=== PATIENT | male | born 1980 | race Two or more races ===

== ENCOUNTER 2024-10-15 17:38 | Emergency (ER) | payer OTHER ==
[~2024-10-15] VITALS: Ht 185.4 cm; Wt 88.5 kg
[2024-10-15 18:10] LABS: Hematocrit 43.1 % (41.0-53.0); Hemoglobin 14.6 g/dL (13.5-17.5); Mean Corpuscular Hemoglobin 28.1 pg (28.0-32.0); Mean Corpuscular Volume 82.7 fL (80.0-100.0); Nucleated Red Blood Cells % 0.1 %
[2024-10-15] MEDS ORDERED: HYDROcodone-ACET 10/325MG TAB PO ONE (18:30)
[2024-10-15 18:35] LABS: Alanine Aminotransferase 28 U/L (7-40); Albumin 4.4 g/dL (3.2-4.8); Alkaline Phosphatase 96 U/L (46-116); Anion Gap 11 (5-15); BUN/Creatinine Ratio 18.8 (10.0-20.0); Bilirubin, Total 0.3 mg/dL (0.2-1.0); Blood Urea Nitrogen 18 mg/dL (9-23); Calcium 10.2 mg/dL (8.7-10.4); Carbon Dioxide 25 mmol/L (20-31); Chloride 107 mmol/L (98-107); Potassium 4.0 mmol/L (3.5-5.1); Sodium 143 mmol/L (136-145); Total Protein 7.3 g/dL (5.7-8.2)
[2024-10-15 18:37] LABS: Glucose 116 mg/dL (74-106)
--- NOTE | 2024-10-15 18:39 | DVH ---
EXAM: XY CHEST XRAY 1 VIEW HISTORY: chest pain TECHNIQUE: 1 view of the chest COMPARISON: None FINDINGS/IMPRESSION: LUNGS: No pleural effusion, consolidation, or pneumothorax MEDIASTINUM: Unremarkable BONES: No acute osseous abnormality OTHER: None
--- NOTE | 2024-10-15 18:42 | ED.PDOC ---
History of Present Illness HPI Comments 44 y/o M presents with son for c/c chest and right flank pain, hot flashes, and excessive sweating. Patient endorses on sudden, unprovoked, and atraumatic onset of symptoms, earlier, today. He comments on pain being pressure-like in quality and improving whenever resting and laying down and worsening whenever standing up and moving around. Patient further reports on vomiting 1x after taking a Motrin prior to arrival. Denial of any urinary symptoms, shortness of breath, abdominal pain, chills, or further associated symptoms. Chief Complaint: Chest Pain Time Seen by MD: 18:15 Reviewed Notes: Nurses Notes, Medications Allergies: Coded Allergies: Acetaminophen (Verified Allergy, Mild, 10/15/24) Home Meds Active Scripts Naproxen (NAPROSYN TABLET) 500 Mg Tb, 1 TAB PO BID PRN, #60 TAB 1 Refill Prov:EMILI JOSHUA MD 10/15/24 Gabapentin (Once-Daily) (Gabapentin) 300 Mg Tab, 300 MG PO Q6HP PRN, #30 TAB Prov:EMILI JOSHUA MD 10/15/24 Tamsulosin Hcl (Flomax) 0.4 Mg Cap, 1 CAP PO DAILY for 30 Days, #30 CAP 11 Refills Prov:EMILI JOSHUA MD 10/15/24 Information Source: Patient Mode of Arrival: Ambulatory Past Medical History PAST MEDICAL HISTORY: Denies Surgical History: Denies all surgeries All Other Systems: Reviewed and Negative (Comprehensive systems review obtained and negative except for what is stated in the HPI.) Physical Exam General Appearance: Mild Distress, Normal HEENT: Normal ENT Inspection, Pharynx Normal, TMs Normal Neck: Full Range of Motion, Non-Tender, Normal, Normal Inspection Respiratory: Chest Non-Tender, Lungs Clear, No Accessory Muscle Use, No Respiratory Distress, Normal Breath Sounds Cardiovascular: No Edema, No JVD, No Murmur, No Gallop, Normal Peripheral Pulses, Regular Rate/Rhythm Breast Exam: Deferred Gastrointestinal: No Organomegaly, Non Tender, No Pulsatile Mass, Normal Bowel Sounds, Soft Genitalia: Deferred Pelvic: Deferred Rectal: Deferred Extremities: No calf tenderness, Normal capillary refill, Normal inspection, Normal range of motion, Non-tender, No pedal edema Musculoskeletal : Apperance: Normal 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 Was a procedure done?: No EKG EKG : Pulse Rate (adult): 86 [place]: Normal Cardiac Rhythm: NSR Block: None Hypertrophy: None ST: Normal Differential Dx Considerations may include: HI, PE, ACS, URI, angina, anxiety, gastritis, nephrolithiasis, cystitis, pyelonephritis, among others X-Ray, Labs, Meds, VS Vital Signs Date Time Temp Pulse Resp B/P (MAP) Pulse Ox O2 Delivery O2 Flow Rate FiO2 10/15/24 20:05 98.0 86 16 150/80 (103) 96 98.0 10/15/24 18:42 86 10/15/24 17:41 86 10/15/24 17:39 98.0 89 16 158/107 96 98.0 Lab Test 10/15/24 18:57 10/15/24 18:21 10/15/24 17:50 Range/Units Troponin I High Sensitivity 26 24 </=54 ng/L Urine Color Yellow Yellow Urine Clarity Turbid H Clear Urine pH 5.5 5.0-9.0 Urine Specific [place] 1.027 1.001-1.035 Urine Protein 1+ H Negative Urine Ketones Negative Negative Urine Blood 3+ H Negative /uL Urine Nitrite Negative Negative Urine Bilirubin Negative Negative Urine Urobilinogen Normal Negative mg/dL Urine Leukocyte Esterase Negative Negative /uL Urine RBC 254 0 - 3 /hpf Urine Microscopic WBC 6 H 0-3 /HPF Urine Squamous Epithelial Cells None seen <5 /hpf Urine Calcium Oxalate Crystals Many None Seen Urine Bacteria None seen None Seen /hpf Urine Mucus Few None Seen Urine Glucose Normal Normal mg/dL White Blood Count 9.9 4.4-10.8 10^3/uL Red Blood Count 5.21 4.5-5.90 10^6/uL Hemoglobin 14.6 13.5-17.5 g/dL Hematocrit 43.1 41.0-53.0 % Mean Corpuscular Volume 82.7 80.0-100.0 fL Mean Corpuscular Hemoglobin 28.1 28.0-32.0 pg Mean Corpuscular Hemoglobin Concent 33.9 32.0-36.0 g/dL Red Cell Distribution Width 13.3 11.8-14.3 % Platelet Count 337 140-450 10^3/uL Mean Platelet Volume 8.6 6.9-10.8 fL Neutrophils (%) (Auto) 65.9 37.0-80.0 % Lymphocytes (%) (Auto) 23.1 10.0-50.0 % Monocytes (%) (Auto) 7.9 0.0-12.0 % Eosinophils (%) (Auto) 2.6 0.0-7.0 % Basophils (%) (Auto) 0.5 0.0-2.0 % Neutrophils # (Auto) 6.5 1.6-8.6 10 ^3/uL Lymphocytes # (Auto) 2.3 0.4-5.4 10 ^3/uL Monocytes # (Auto) 0.8 0-1.3 10 ^3/uL Eosinophils # (Auto) 0.3 0-0.8 10 ^3/uL Basophils # (Auto) 0.1 0-0.2 10 ^3/uL Nucleated Red Blood Cells 0.1 % Sodium Level 143 136-145 mmol/L Potassium Level 4.0 3.5-5.1 mmol/L Chloride Level 107 98-107 mmol/L Carbon Dioxide Level 25 20-31 mmol/L Anion Gap 11 5-15 Blood Urea Nitrogen 18 9-23 mg/dL Creatinine 0.96 0.700-1.30 mg/dL Glomerular Filtration Rate Calc 101 >90 mL/min BUN/Creatinine Ratio 18.8 10.0-20.0 Serum Glucose 116 H 74-106 mg/dL Calcium Level 10.2 8.7-10.4 mg/dL Total Bilirubin 0.3 0.2-1.0 mg/dL Aspartate Amino Transferase (AST) 21 13-40 U/L Alanine Aminotransferase (ALT) 28 7-40 U/L Alkaline Phosphatase 96 46-116 U/L Total Protein 7.3 5.7-8.2 g/dL Albumin 4.4 3.2-4.8 g/dL Current Medications Medications (Trade) Dose Ordered Sig/Nunu Route Start Time Stop Time Status Last Admin Ondansetron HCl (Zofran Po) 4 mg ONCE ONCE PO 10/15/24 18:30 10/15/24 18:31 DC 10/15/24 19:51 Tamsulosin HCl (Flomax) 0.4 mg ONCE ONCE PO 10/15/24 19:45 10/15/24 19:46 DC 10/15/24 19:51 Ketorolac Tromethamine (Toradol Injection) 30 mg ONCE ONCE IV 10/15/24 20:00 10/15/24 20:01 DC 10/15/24 20:04 [place] [id number] Ph: [phone] DIAGNOSTIC IMAGING Diagnostic Imaging Report : [id number] Signed PATIENT: GRIFFIN ISAACS ACCT: [id number] UNIT: [id number] : 1980 LOC: ER ROOM / BED: / AGE / SEX: 44 / M ADM STATUS: REG ER SERVICE 55 ORDERING PHYSICIAN: EMILI JOSHUA MD PROCEDURE(s): CXR1 - CHEST XRAY 1 VIEW REASON: chest pain ORDER NUMBER(s): [id number], ACCESSION NUMBER(s): [id number] EXAM: XY CHEST XRAY 1 VIEW HISTORY: chest pain TECHNIQUE: 1 view of the chest COMPARISON: None FINDINGS/IMPRESSION: LUNGS: No pleural effusion, consolidation, or pneumothorax MEDIASTINUM: Unremarkable BONES: No acute osseous abnormality OTHER: None ATED BY: DANNY JACKSON MD DICTATED DATE/TIME: 10/15/241835 SIGNED BY: DANNY JACKSON MD SIGNED DATE/TIME: 10/15/241835 CC: [place] [id number] Ph: [phone] DIAGNOSTIC IMAGING Diagnostic Imaging Report : [id number] Signed PATIENT: GRIFFIN ISAACS ACCT: [id number] UNIT: [id number] : 1980 LOC: ER ROOM / BED: / AGE / SEX: 44 / M ADM STATUS: REG ER SERVICE 23 ORDERING PHYSICIAN: EMILI JOSHUA MD PROCEDURE(s): ABPL - CT AB PEL WO CON-NO ORAL OR IV REASON: right flank pain ORDER NUMBER(s): [id number], ACCESSION NUMBER(s): [id number] COMPUTERIZED TOMOGRAPHY ABDOMEN AND PELVIS WITHOUT CONTRAST REASON FOR EXAM: right flank pain COMPARISON: None TECHNIQUE: Spiral scans were acquired from the diaphragm to the symphysis pubis without intravenous contrast administration. 2-D coronal and sagittal reformatted images were provided. Radiation optimization: All CT scans at this facility use at least one of these dose optimization techniques: Automated exposure control mA and/or kV adjustment per patient size (includes targeted exams where dose is matched to clinical indication) or iterative reconstruction. RADIATION DOSE: CTDI: 7 mGy DLP: 439 mGy-cm FINDINGS: The visualized lung bases are unremarkable. There is no pleural effusion. There is no pericardial effusion. The spleen is not enlarged. The liver is normal in size and contour. There is a 1.9 cm cyst in the right liver dome. No calcified gallstone is identified. There is no pericholecystic edema. Evaluation of the abdominal organs is suboptimal in the absence of intravenous contrast. Unenhanced appearance of the pancreas is unremarkable. The adrenal glands are normal. The kidneys are similar in size. There is trace right hydroureteronephrosis. There is a 2 mm calculus within the distal right ureter near the ureterovesical junction. No additional renal, ureteral, or bladder calculus is identified. The urinary bladder is decompressed. The prostate and seminal vesicles are within normal limits. No free fluid is identified in the abdomen or pelvis. There is no pathologic lymphadenopathy by size criteria. There is no abdominal aortic aneurysm. The colonic stool burden is small. The appendix is normal. There is no distention of the small bowel. No acute osseous abnormality is identified. IMPRESSION: There is a 2 mm calculus in the distal right ureter near the ureterovesical junction causing trace right hydroureteronephrosis. Normal appendix. ATED BY: URI GARCIA MD DICTATED DATE/TIME: 10/15/241908 SIGNED BY: URI GARCIA MD SIGNED DATE/TIME: 10/15/241908 CC: Time of 1ST Reevaluation: 18:45 Reevaluation 1ST: Unchanged Patient Education/Counseling: Diagnosis, Treatment, Need For Follow Up Family Education/Counseling: Diagnosis, Treatment, Need For Follow Up SEPSIS Sepsis Screen Date sepsis recognized/suspect: Oct 15, 2024 Time Sepsis recognized/suspect: 1740 Recent Procedure: No On Antibiotic Therapy: No Respiratory Rate >20: No Heart Rate >90: No Temp<36 C (96.8 F) or >38.3 C: No SBP <90 or MAP <65 mmHG: No New Acute Mental Status Change: No Is the patient on CPAP, BIPAP,: No Physician Orders Electrocardigram (10/15/24 17:42) Electrocardigram (10/15/24 18:42) Chest Xray 1 View (10/15/24 17:56) Ct Ab Pel Wo Con-No Oral Or Iv (10/15/24 18:24) Vital Signs Date Time Temp Pulse Resp B/P (MAP) Pulse Ox O2 Delivery O2 Flow Rate FiO2 10/15/24 20:05 98.0 86 16 150/80 (103) 96 98.0 10/15/24 18:42 86 10/15/24 17:41 86 10/15/24 17:39 98.0 89 16 158/107 96 98.0 Laboratory Tests Test 10/15/24 17:50 White Blood Count 9.9 10^3/uL (4.4-10.8) Medications Medications Dose Ordered Sig/Nunu Route Start Time Stop Time Status Last Admin Dose Admin Ketorolac Tromethamine 30 mg ONCE ONCE IV 10/15/24 20:00 10/15/24 20:01 DC 10/15/24 20:04 Ondansetron HCl 4 mg ONCE ONCE PO 10/15/24 18:30 10/15/24 18:31 DC 10/15/24 19:51 Tamsulosin HCl 0.4 mg ONCE ONCE PO 10/15/24 19:45 10/15/24 19:46 DC 10/15/24 19:51 Departure 1 Departure Time of Disposition: 20:40 Impression: Primary Impression: Atypical chest pain Additional Impressions: Ureteral calculus, right Ureteral colic Disposition: HOME / SELF CARE / HOMELESS Condition: Stable e-Prescriptions Naproxen (NAPROSYN TABLET) 500 Mg Tb 1 TAB PO BID PRN, #60 TAB 1 Refill Prov: EMILI JOSHUA MD 10/15/24 Gabapentin (Once-Daily) (Gabapentin) 300 Mg Tab 300 MG PO Q6HP PRN, #30 TAB Prov: EMILI JOSHUA MD 8/31/25 Tamsulosin Hcl (Flomax) 0.4 Mg Cap 1 CAP PO DAILY for 30 Days, #30 CAP 11 Refills Prov: EMILI JOSHUA MD 10/15/24 Discharged With: Self Critical Care Note Critical Care Time?: No Stability Stability form required: No Heart Score Heart Score: Heart Score Response (Comments) Value History Slightly Suspicious 0 EKG Normal 0 Age <45 0 Risk Factors No known risk factors 0 Troponin Normal limit 0 Total 0 I personally scribed for EMILI JOSHUA MD ([email or web address]) on 10/15/24 at 18:42. Electronically submitted by Brock Hoskins ([email or web address]). I personally scribed for EMILI JOSHUA MD ([email or web address]) on 10/15/24 at 19:15. E lectronically submitted by Brock Hoskins ([email or web address]). EMILI JOSHUA MD Oct 15, 2024 18:42
[2024-10-15 18:45] LABS: Urine Protein, UAD 1+ (Negative)
--- NOTE | 2024-10-15 19:11 | DVH ---
COMPUTERIZED TOMOGRAPHY ABDOMEN AND PELVIS WITHOUT CONTRAST REASON FOR EXAM: right flank pain COMPARISON: None TECHNIQUE: Spiral scans were acquired from the diaphragm to the symphysis pubis without intravenous c ontrast administration. 2-D coronal and sagittal reformatted images were provided. Radiation optimiza tion: All CT scans at this facility use at least one of these dose optimization techniques: Automated exposure control mA and/or kV adjustment per patient size (includes targeted exams where dose is mat ched to clinical indication) or iterative reconstruction. RADIATION DOSE: CTDI: 7 mGy DLP: 439 mGy-cm FINDINGS: The visualized lung bases are unremarkable. There is no pleural effusion. There is no pericardial ef fusion. The spleen is not enlarged. The liver is normal in size and contour. There is a 1.9 cm cyst in the ri ght liver dome. No calcified gallstone is identified. There is no pericholecystic edema. Evaluation of the abdominal organs is suboptimal in the absence of intravenous contrast. Unenhanced appearance o f the pancreas is unremarkable. The adrenal glands are normal. The kidneys are similar in size. The re is trace right hydroureteronephrosis. There is a 2 mm calculus within the distal right ureter near the ureterovesical junction. No additional renal, ureteral, or bladder calculus is identified. The urinary bladder is decompressed. The prostate and seminal vesicles are within normal limits. No free fluid is identified in the abdomen or pelvis. There is no pathologic lymphadenopathy by size criteri a. There is no abdominal aortic aneurysm. The colonic stool burden is small. The appendix is normal. There is no distention of the small bowel. No acute osseous abnormality is identified. IMPRESSION: There is a 2 mm calculus in the distal right ureter near the ureterovesical junction causing trace ri ght hydroureteronephrosis. Normal appendix.
[2024-10-15] MEDS ORDERED: TAMS-35 PO (19:34)
[2024-10-15] MEDS ORDERED: GABA300T4 PO (19:35)
[2024-10-15] MEDS ORDERED: NAP500T PO (19:35)
[2024-10-15] MEDS: ONDANSETRON ODT 4 MG TAB PO ONE (19:51)
[2024-10-15] MEDS: TAMSULOSIN HYDROCHLORIDE 0.4 MG CAP PO ONE (19:51)
[2024-10-15] MEDS: KETOROLAC TROMETH 30 MG/ML 1ML VIAL IV ONE (20:04)
[2024-10-15 20:05] VITALS: BP 150/80; PULSE 86; RESP 16; TEMP 98; O2SAT 96
--- NOTE | 2024-10-17 10:34 | ECG ---
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
== END 2024-10-15 20:06 | disposition home or self-care (01) ==
LOC: ER 17:38
DX: N13.2 Hydronephrosis with renal and ureteral calculous obstruction (principal); R07.89 Other chest pain; Z79.899 Other long term (current) drug therapy
CPT/HCPCS: 36415; 71045; 74176; 80053; 81001; 84484; 85025; 96374; 99285; J1885; Q0162; 93005